=== PATIENT | male | born 1995 | race Caucasian/White ===

== ENCOUNTER 2017-01-29 12:03 | Emergency (ER) | payer OTHER ==
[~2017-01-29] VITALS: Ht 177.8 cm; Wt 94.4 kg
[2017-01-29 12:05] VITALS: BP 148/88
[2017-01-29] MEDS ORDERED: DIPH,PERTUSS(ACELL),TET VAC/PF 0.5 ML IM-VACC ONE ×2 (12:20→12:30)
[2017-01-29] MEDS ORDERED: LIDOCAINE 1%, 20ML ONE (12:20)
[2017-01-29] MEDS ORDERED: LIDOCAINE 1%, 20ML SQ ONE (12:30)
[2017-01-29] MEDS ORDERED: BACITRACIN ZINC OINT 500U/GM, 0.9 GM ONE (12:40)
== END 2017-01-29 13:10 | disposition home or self-care (01) ==
LOC: ED 13:00
DX: S61.012A Laceration without foreign body of left thumb without damage to nail, initial encounter (principal); Z88.1 Allergy status to other antibiotic agents; W26.0XXA Contact with knife, initial encounter; Y93.89 Activity, other specified; Y92.89 Other specified places as the place of occurrence of the external cause; Y99.8 Other external cause status
CPT/HCPCS: 12041; 90471; 90715